=== PATIENT | female | born 1945 | race Caucasian/White ===

== ENCOUNTER 2016-05-31 13:44 | Emergency (ER) | payer OTHER ==
[~2016-05-31] VITALS: Ht 152.4 cm; Wt 79.5 kg
[~2016-05-31 13:44] MED LIST: AMLO5CAP PO; ASPI81TA82 PO; BACL10TA PO; BUPR100T PO; DONE10TA14 PO; MAXZ25 PO; MORP1INJ45 PO; OMEP20TA PO; ONDA4 PO; PROM25R PR
[2016-05-31] MEDS ORDERED: SODIUM CHLOR 0.9% 1000 ML INJ 1,000 ML IV ONE ×2 (14:18→15:45)
[2016-05-31 14:20] VITALS: BP 144/80; PULSE 95; RESP 24; TEMP 98.4; O2SAT 98
[2016-05-31 14:22] VITALS: BP 144/80; PULSE 91; RESP 24; TEMP 98.4; O2SAT 98
[2016-05-31] MEDS ORDERED: MORPHINE SULFATE 4 MG/ML INJ IV ONE (14:30)
[2016-05-31] MEDS ORDERED: ONDANSETRON HCL 4 MG/2 ML VIAL IVP ONE (14:30)
--- NOTE | 2016-05-31 14:48 | PD ---
HPI Chief Complaint: GI Complaint Time Seen by Provider: 14:18 Travel History International Travel<30 days: No Contact w/Intl Traveler<30days: No Traveled to known affect area: No History of Present Illness HPI The patient is a 70-year-old female who presents to the emergency department via EMS for generalized weakness with diarrhea. The patient states she developed diarrhea last night, notes approximately 8 episodes of loose, watery, brown diarrhea since 4 AM. The patient states her symptoms started after she had a HIDA Scan performed yesterday at [facility]. The patient does note mild nausea but denies any vomiting. She does note occasional intermittent crampy abdominal pain with the diarrhea, but denies any abdominal pain upon presentation. The patient states she's had intermittent abdominal discomfort located in epigastrium the last several months and had a HIDA scan ordered by her primary physician, Dr. Mcclain. The patient complains of subjective fevers, EMS stated the patient's temperature was 99.8 prior to arrival. Patient denies any dysuria, frequency, or urgency. The patient does complain of generalized weakness with difficulty ambulating to the bathroom secondary to the weakness. She denies any focal deficits. PFSH Past Medical History Hx Anticoagulant Therapy: Yes (ASA 81MG) Arthritis: Yes Asthma: No Autoimmune Disease: No Blood Disorders: No Depression: Yes Heart Rhythm Problems: No Cancer: No Cardiovascular Problems: Yes (MURMUR) High Cholesterol: No Congestive Heart Failure: No COPD: No Cerebrovascular Accident: Yes (TIA X 3) Diabetes: No Diminished Hearing: No Endocrine: No Gastrointestinal Disorders: Yes GERD: Yes Glaucoma: No Genitourinary: Yes (BLADDER BLADDER SLING) Headaches: Yes (MIGRAINES) Hepatitis: No Hiatal Hernia: Yes (HX HAD SX FOR HIATAL HERNIA) Hypertension: Yes Immune Disorder: No Kidney Stones: No Musculoskeletal: Yes (FIBROMYALGIA ; ARTHRITIS) Neurologic: Yes (TIA X 3 ; PT ALSO ON ARICEPT) Psychiatric: Yes Reproductive: No Respiratory: Yes (SLEEP APNEA-CPAP AT NIGHT) Migraines: Yes Myocardial Infarction: No Renal Failure: No Seizures: No Sleep Apnea: No Thyroid Disease: No Ulcer: Yes Menopausal: Yes : 3 Para: 3 Tubal Ligation: Yes Past Surgical History Abdominal Surgery: Yes (CORTEZ FUNDOPLICATION FOR HIATAL HERNIA) Body Medical Devices: MORPHINE PUMP FOR MIGRANES Genitourinary Surgery: Yes (BLADDER SLING) Hysterectomy: Yes Joint Replacement: Yes (RIGHT KNEE AND LEFT KNEE REPLACEMENTS-TOTAL) Neurologic Surgery: Yes (NEURO TRANSMITTER (PAIN STIMULATOR FOR MIGRANES)- MORPHINE PUMP) Pacemaker: No Other Surgery: Yes (HYSTERECTOMY, CARPELL TUNNEL, BLADDER RECONSTRUCTION, RTKA ) Social History Alcohol Use: No Tobacco Use: No Substance Use: No Allergies-Medications (Allergen,Severity, Reaction): Coded Allergies: Erythromycin (Verified Adverse Reaction, Intermediate, RESTLESS LEGS, 05/31) Metoclopramide (Verified Adverse Reaction, Intermediate, RESTLESS LEGS, 03/06) Reported Meds & Prescriptions Reported Meds & Active Scripts Active Reported [Morphine Pump] 1 Bupropion HCl 100 Mg Tab 100 Mg PO BID Maxzide (Triamterene/HCTZ) 75-50 Mg Tab 1 Tab PO DAILY Baclofen 10 Mg Tab 10 Mg PO DAILY Omeprazole 20 Mg Tab 20 Mg PO BID Phenergan Supp (Promethazine HCl) 25 Mg Supp 25 Mg RECTAL Q6H PRN Zofran (Ondansetron HCl) 8 Mg Tab 8 Mg PO TID PRN Donepezil 10 Mg Tab 10 Mg PO HS Aspirin 81 Mg Tabdr 81 Mg PO DAILY Amlodipine-Benazepril 5-10 Mg Cap 1 Cap PO DAILY Review of Systems Except as stated in HPI: all other systems reviewed are Neg General / Constitutional: Positive: Fever (subjective, 99.8 per EMS prior to arrival) HENT: Positive: Lightheadedness Cardiovascular: No: Chest Pain or Discomfort Respiratory: No: Shortness of Breath Gastrointestinal: Positive: Nausea, Diarrhea, Abdominal Pain (intermittent crampy pain with diarrhea, currently resolved), No: Vomiting Genitourinary: No: Dysuria Musculoskeletal: Positive: Weakness Neurologic: Positive: Weakness Physical Exam Narrative GENERAL: Awake, alert, pleasant 70-year-old female who appears her stated age and is in no acute respiratory distress. SKIN: Warm and dry. HEAD: Atraumatic. Normocephalic. EYES: No injection or drainage. ENT: No nasal bleeding or discharge. Slightly dry mucous membranes. NECK: Trachea midline. No JVD. CARDIOVASCULAR: Regular rate and rhythm. No murmur appreciated. Heart rate in the 90s. RESPIRATORY: No accessory muscle use. Clear to auscultation. Breath sounds equal bilaterally. GASTROINTESTINAL: Abdomen soft, non-tender, nondistended. No rebound tenderness. Morphine pump located right lower quadrant on exam. MUSCULOSKELETAL: No obvious deformities. No clubbing. No cyanosis. No edema. NEUROLOGICAL: Awake and alert. No obvious cranial nerve deficits. Motor grossly within normal limits. Normal speech. PSYCHIATRIC: Appropriate mood and affect; insight and judgment normal. Data Data Last Documented VS Vital Signs Date Time Temp Pulse Resp B/P Pulse Ox O2 Delivery O2 Flow Rate FiO2 05/31/16 16:54 14 05/31/16 15:57 89 168/93 80 147/96 05/31/16 15:57 98 Room Air 05/31/16 14:22 98.4 Orders Complete Blood Count With Diff (05/31/16 14:18) Comprehensive Metabolic Panel (05/31/16 14:18) Urinalysis - C+S If Indicated (05/31/16 14:18) Lipase (05/31/16 14:18) Ct Abd/Pel W/O Iv Contrast (05/31/16 ) Iv Access Insert/Monitor (05/31/16 14:18) Ecg Monitoring (05/31/16 14:18) Oximetry (05/31/16 14:18) Morphine Inj (Morphine Inj) (05/31/16 14:30) Ondansetron Inj (Zofran Inj) (05/31/16 14:30) Sodium Chlor 0.9% 1000 Ml Inj (Ns 1000 M (05/31/16 14:18) Sodium Chloride 0.9% Flush (Ns Flush) (05/31/16 14:30) C Diff Toxin Pcr (05/31/16 14:18) Orthostatic Vital Signs (05/31/16 14:18) Sodium Chlor 0.9% 1000 Ml Inj (Ns 1000 M (05/31/16 15:45) Labs Laboratory Tests Test 05/31/16 05/31/16 15:20 16:00 White Blood Count 8.0 TH/MM3 Red Blood Count 4.87 MIL/MM3 Hemoglobin 16.5 GM/DL Hematocrit 49.6 % Mean Corpuscular Volume 101.8 FL Mean Corpuscular Hemoglobin 33.8 PG Mean Corpuscular Hemoglobin 33.2 % Concent Red Cell Distribution Width 12.8 % Platelet Count 228 TH/MM3 Mean Platelet Volume 7.7 FL Neutrophils (%) (Auto) 88.2 % Lymphocytes (%) (Auto) 9.8 % Monocytes (%) (Auto) 1.6 % Eosinophils (%) (Auto) 0.0 % Basophils (%) (Auto) 0.4 % Neutrophils # (Auto) 7.1 TH/MM3 Lymphocytes # (Auto) 0.8 TH/MM3 Monocytes # (Auto) 0.1 TH/MM3 Eosinophils # (Auto) 0.0 TH/MM3 Basophils # (Auto) 0.0 TH/MM3 CBC Comment DIFF FINAL Differential Comment Sodium Level 137 MEQ/L Potassium Level 3.7 MEQ/L Chloride Level 102 MEQ/L Carbon Dioxide Level 24.0 MEQ/L Anion Gap 11 MEQ/L Blood Urea Nitrogen 11 MG/DL Creatinine 0.61 MG/DL Estimat Glomerular Filtration 97 ML/MIN Rate Random Glucose 98 MG/DL Calcium Level 9.4 MG/DL Total Bilirubin 0.7 MG/DL Aspartate Amino Transf 31 U/L (AST/SGOT) Alanine Aminotransferase 26 U/L (ALT/SGPT) Alkaline Phosphatase 87 U/L Total Protein 8.0 GM/DL Albumin 4.5 GM/DL Lipase 293 U/L Urine Color YELLOW Urine Turbidity CLEAR Urine pH 6.5 Urine Specific [place] 1.015 Urine Protein 30 mg/dL Urine Glucose (UA) NEG mg/dL Urine Ketones 150 mg/dL Urine Occult Blood NEG Urine Nitrite NEG Urine Bilirubin NEG Urine Urobilinogen LESS THAN 2.0 MG/DL Urine Leukocyte Esterase NEG Urine RBC 1 /hpf Urine WBC 2 /hpf Urine Mucus FEW /lpf Microscopic Urinalysis Comment CULT NOT INDICATED MDM Medical Decision Making Medical Screen Exam Complete: Yes Emergency Medical Condition: Yes Medical Record Reviewed: Yes Interpretation(s) Laboratory Tests Test 05/31/16 05/31/16 15:20 16:00 White Blood Count 8.0 TH/MM3 Red Blood Count 4.87 MIL/MM3 Hemoglobin 16.5 GM/DL Hematocrit 49.6 % Mean Corpuscular Volume 101.8 FL Mean Corpuscular Hemoglobin 33.8 PG Mean Corpuscular Hemoglobin 33.2 % Concent Red Cell Distribution Width 12.8 % Platelet Count 228 TH/MM3 Mean Platelet Volume 7.7 FL Neutrophils (%) (Auto) 88.2 % Lymphocytes (%) (Auto) 9.8 % Monocytes (%) (Auto) 1.6 % Eosinophils (%) (Auto) 0.0 % Basophils (%) (Auto) 0.4 % Neutrophils # (Auto) 7.1 TH/MM3 Lymphocytes # (Auto) 0.8 TH/MM3 Monocytes # (Auto) 0.1 TH/MM3 Eosinophils # (Auto) 0.0 TH/MM3 Basophils # (Auto) 0.0 TH/MM3 CBC Comment DIFF FINAL Differential Comment Sodium Level 137 MEQ/L Potassium Level 3.7 MEQ/L Chloride Level 102 MEQ/L Carbon Dioxide Level 24.0 MEQ/L Anion Gap 11 MEQ/L Blood Urea Nitrogen 11 MG/DL Creatinine 0.61 MG/DL Estimat Glomerular Filtration 97 ML/MIN Rate Random Glucose 98 MG/DL Calcium Level 9.4 MG/DL Total Bilirubin 0.7 MG/DL Aspartate Amino Transf 31 U/L (AST/SGOT) Alanine Aminotransferase 26 U/L (ALT/SGPT) Alkaline Phosphatase 87 U/L Total Protein 8.0 GM/DL Albumin 4.5 GM/DL Lipase 293 U/L Urine Color YELLOW Urine Turbidity CLEAR Urine pH 6.5 Urine Specific [place] 1.015 Urine Protein 30 mg/dL Urine Glucose (UA) NEG mg/dL Urine Ketones 150 mg/dL Urine Occult Blood NEG Urine Nitrite NEG Urine Bilirubin NEG Urine Urobilinogen LESS THAN 2.0 MG/DL Urine Leukocyte Esterase NEG Urine RBC 1 /hpf Urine WBC 2 /hpf Urine Mucus FEW /lpf Microscopic Urinalysis Comment CULT NOT INDICATED CT the abdomen and pelvis reveals no acute findings identified within the abdomen and pelvis. Specifically no obstruction, free fluid, or free air. Moderate rotary level scoliosis with spinal stimulation while present. Differential Diagnosis Differential diagnosis includes viral syndrome, enteritis, colitis, inflammatory diarrhea, infectious diarrhea, medication side effect, Clostridium difficile, dehydration. Narrative Course IV was established, labs are drawn and sent, and the patient was placed on cardiac telemetry monitoring and continuous pulse oximetry monitoring. IV the patient's biliary quantitative (HIDA) that was performed on May 30, 2016, revealed negative examination. UA reveals moderate 50 ketones consistent dehydration, hemoglobin was elevated, most likely secondary to hemoconcentration from dehydration. BUN, creatine, LFTs, lipase are normal. CT of the abdomen and pelvis was ordered to evaluate for colitis. The patient was administered Zofran 4 mg intravenously and a total of 2 L normal saline intravenously. The patient was reevaluated at 4:55 PM, her nausea had improved , she did not want any more nausea medicine. CT of the abdomen and pelvis was negative for acute findings, no evidence of colitis. The patient was given a by mouth challenge with erin peter. The patient would prefer to be discharged him with Phenergan suppositories, states it works better for nausea then oral ODT Zofran. The patient was able to tolerate erin peter without difficulty. She is advised to return if symptoms worsen or progress. Diagnosis Primary Impression: Diarrhea Qualified Code: R19.7 - Diarrhea, unspecified type Additional Impression: Dehydration Patient Instructions: General Instructions Additional Instructions: Please provide a patient a copy of her CT results and lab results at discharge. Medications as directed. Clear liquid diet and advance as tolerated. Follow- up with her primary physician. Return if symptoms worsen or progress. Med/Other Pt SpecificInfo: Prescription(s) given Scripts Promethazine Supp (Phenergan Supp)25 Mg Supp25 Mg RECTAL Q6H PRN (NAUSEA OR VOMITING) #15 SUPP Ref 0 Prov:Osvaldo Cam MD 05/31/16 Disposition: DISCHARGE HOME Condition: Stable Osvaldo Cam MD May 31, 2016 14:48
[2016-05-31] MEDS ORDERED: DONE10TA7 PO (15:01)
[2016-05-31] MEDS ORDERED: PROM1SUP7 RECTAL ×2 (15:01→17:27)
[2016-05-31] MEDS ORDERED: MAXZ PO (15:01)
[2016-05-31] MEDS ORDERED: AMLO5CAP PO (15:01)
[2016-05-31] MEDS ORDERED: ZOFR8TAB PO (15:01)
[2016-05-31] MEDS ORDERED: BACL10TA PO (15:01)
[2016-05-31] MEDS ORDERED: ASPI1TAB69 PO (15:01)
[2016-05-31] MEDS ORDERED: OMEP20TA PO (15:01)
[2016-05-31] MEDS ORDERED: BUPR100T4 PO (15:02)
[2016-05-31] MEDS ORDERED: MORPHINE PUMP (15:03)
[2016-05-31 15:38] LABS: AUTOMATED NEUTROPHIL # 7.1 TH/MM3 (1.8-7.7); BASOPHIL % 0.4 % (0.0-2.0); HEMATOCRIT 49.6 % (35.0-46.0); HEMO FLAGS DIFF FINAL; LYMPH % 9.8 % (9.0-44.0); LYMPHOCYTE # 0.8 TH/MM3 (1.0-4.8); MEAN CELL VOLUME 101.8 FL (80.0-100.0); MEAN CORPUSCULAR HEMOGLOBIN 33.8 PG (27.0-34.0); MEAN CORPUSCULAR HGB CONC 33.2 % (32.0-36.0); MONO % 1.6 % (0.0-8.0); NEUT % 88.2 % (16.0-70.0); PLATELET COUNT 228 TH/MM3 (150-450); RED BLOOD COUNT 4.87 MIL/MM3 (4.00-5.30); RED CELL DISTRIBUTION WIDTH 12.8 % (11.6-17.2)
[2016-05-31] MEDS: SODIUM CHLORIDE 0.9% FLUSH 5 ML FLUSH IVF PRN ×3 (15:46→19:10)
[2016-05-31 15:56] LABS: ALKALINE PHOSPHATASE 87 U/L (45-117); TOTAL BILIRUBIN ADULT 0.7 MG/DL (0.2-1.0)
[2016-05-31 15:57] VITALS: BP_SYST 147; BP_SYST 168; BP_DIAS 93; BP_DIAS 96; PULSE 85; RESP 16; RESP 22; RESP 24; O2SAT 98
[2016-05-31 16:02] LABS: ALT (GPT) 26 U/L (10-53); ANION GAP 11 MEQ/L (5-15); AST (GOT) 31 U/L (15-37); BLOOD UREA NITROGEN 11 MG/DL (7-18); CHLORIDE 102 MEQ/L (98-107); GLOMERULAR FILTRATION RATE 97 ML/MIN (>89); POTASSIUM 3.7 MEQ/L (3.5-5.1); SODIUM (NA) 137 MEQ/L (136-145)
[2016-05-31 16:39] LABS: BLOOD, URINE NEG (NEG); GLUCOSE,URINE NEG (NEG); KETONE, URINE 150 mg/dL (NEG); MUCUS URINE FEW /lpf (OCC); NITRITE,URINE NEG (NEG); PH, URINE 6.5 (5.0-8.5); URINE COLOR YELLOW (YELLW/STRAW)
[2016-05-31 16:40] LABS: COMMENT (UR) CULT NOT INDICATED; CULTURE IF INDICATED CULT NOT INDICATED
--- NOTE | 2016-05-31 17:17 | RADRPT ---
EXAM DATE/TIME: 05/31/2016 16:35 [facility] COMPARISON: No previous studies available for comparison. INDICATIONS : Abdomen pain; diarrhea. ORAL CONTRAST: No oral contrast ingested. RADIATION DOSE: 18.41 CTDIvol (mGy) MEDICAL HISTORY : Cardiovascular disease. SURGICAL HISTORY : Hysterectomy. bladder sling, hiatal hernia repair, abdominal implant. ENCOUNTER: Initial ACUITY: 1 day PAIN SCALE: 5/10 LOCATION: Bilateral abdomen. TECHNIQUE: Volumetric scanning of the abdomen and pelvis was performed. Using automated exposure control and ad justment of the mA and/or kV according to patient size, radiation dose was kept as low as reasonably achievable to obtain optimal diagnostic quality images. FINDINGS: Lateral bases are clear. No significant abnormality the liver, spleen, adrenals, kidneys or pancreas. No calcified gallstones or biliary ductal dilatation. No bowel obstruction. No free air or free fluid. No adenopathy. No evidence for retroperitoneal hemor rhage. Spinal stimulator wire is seen extending into the lower thoracic spinal canal. There is a mode rate rotatory levoscoliosis. CONCLUSION: 1. No acute findings identified within the abdomen and pelvis. Specifically no obstruction free fluid or free air. 2. Moderate rotatory levoscoliosis with spinal stimulation wire present. Aly Cornejo MD on May 31, 2016 at 17:11 Board Certified Radiologist. This report was verified electronically.
[2016-05-31] MEDS ORDERED: SODIUM CHLORID 0.9% 500 ML INJ 500 ML IV ONE (19:00)
[2016-05-31] MEDS ORDERED: PROCHLORPERAZINE INJ 10 MG/2 ML VIAL IVS ONE (19:00)
[2016-05-31 19:24] VITALS: BP 174/103; PULSE 83; RESP 20; O2SAT 100
== END 2016-05-31 21:31 | disposition home or self-care (01) ==
LOC: NEPC 13:44
DX: R19.7 Diarrhea, unspecified (principal); E86.0 Dehydration; R53.1 Weakness; R11.0 Nausea; Z79.01 Long term (current) use of anticoagulants; I10 Essential (primary) hypertension
CPT/HCPCS: 74176; 80053; 81001; 83690; 85025; 96361; 96374; 96375; 99285; J0780; J2270; J2405; J7030; J7040